=== PATIENT | male | born 1950 | race Caucasian/White ===

== ENCOUNTER 2023-05-20 09:49 | Outpatient (CLI) | payer MEDICARE ==
[2023-05-20] MEDS ORDERED: Magnevist 469MG/ML 20 ML VIAL ONE (11:24)
== END 2023-05-20 09:50 | disposition home or self-care (01) ==
LOC: CSHMRI 09:49
PROVIDERS: ATTEND Urology
DX: C61 Malignant neoplasm of prostate (principal); N40.2 Nodular prostate without lower urinary tract symptoms; N13.4 Hydroureter; N32.89 Other specified disorders of bladder; N32.3 Diverticulum of bladder
CPT/HCPCS: 72197; 82565; A9579